=== PATIENT | male | born 1995 | race African-American/Black ===

== ENCOUNTER 2021-05-31 19:26 | Inpatient (IN) | payer OTHER ==
[2021-05-31 19:59] VITALS: BMI 23.8
[2021-05-31] MEDS ORDERED: ACETAMINOPHEN 325 MG TABLET (FP) PO PRN (21:27)
[2021-05-31] MEDS ORDERED: MAGNESIUM CITRATE 300 ML BOTTLE PO PRN (21:27)
[2021-05-31] MEDS ORDERED: NICOTINE POLACRILEX 2 MG GUM BUC PRN (21:27)
[2021-05-31] MEDS ORDERED: MAG HYDROX/AL HYDROX/SIMETH 30 ML UNIT-DOSE CUP PO PRN (21:27)
[2021-05-31] MEDS ORDERED: BISMUTH SUBSALICYLATE 524 MG/30 ML PO PRN (21:27)
[2021-05-31] MEDS ORDERED: MAGNESIUM HYDROX 2400MG/30ML ORAL SUSPENSION 30 ML CUP PO PRN (21:27)
[2021-05-31] MEDS ORDERED: ONDANSETRON *ODT* 4 MG TABLET SL PRN (21:27)
[2021-05-31] MEDS ORDERED: MENTHOL/PHENOL 1 EACH UD MM PRN (21:27)
[2021-05-31] MEDS ORDERED: methaDONE HCL 10 MG TABLET (FOR DETOX USE ONLY) PO ONE (21:27)
[2021-05-31] MEDS ORDERED: cloNIDine HCL 0.1 MG TABLET PO PRN (21:27)
[2021-05-31] MEDS ORDERED: ALBUTEROL SO4 HFA INHALER IH SCH (22:00)
[2021-05-31] MEDS: diazePAM 5 MG TABLET PO SCH (23:56)
[2021-05-31] MEDS: hydrOXYzine PAMOATE 25 MG CAPSULE (FP) PO SCH (23:56)
[2021-05-31] MEDS: THIAMINE HCL 100 MG TABLET (FP) PO SCH (23:57)
[2021-05-31] MEDS: MELATONIN 5 MG TABLETS PO SCH (23:57)
[2021-06-01] MEDS: ALBUTEROL SO4 HFA INHALER IH PRN (00:04)
[2021-06-01] MEDS: diazePAM 5 MG TABLET PO SCH ×4 (05:51→22:33)
[2021-06-01] MEDS: hydrOXYzine PAMOATE 25 MG CAPSULE (FP) PO SCH (05:51)
[2021-06-01] MEDS ORDERED: methaDONE HCL 10 MG TABLET (FOR DETOX USE ONLY) ONE (09:54)
[2021-06-01] MEDS: PRENATAL VITAMINS W/ FOLIC ACID TABLET (FP) PO SCH (10:48)
[2021-06-01] MEDS: NICOTINE 7 MG/24 HOURS TOPICAL PATCH TD SCH (10:48)
[2021-06-01 10:56] LABS: HEMATOCRIT 39.6 % (35.4-49); HEMOGLOBIN 13.3 GM/dL (11.7-16.9); MCH 28.5 pg (25.7-33.7); MCHC 33.6 g/dl (32.0-35.9); MEAN CELL VOLUME 84.8 fl (80-96); MEAN PLT VOLUME 7.9 fl (7.5-11.1); PLATELET COUNT 222 10^3/uL (134-434); RBC 4.67 M/mm3 (4.00-5.60); RDW 14.3 % (11.9-15.9); WHITE BLOOD COUNT 3.7 K/mm3 (4.0-10.0)
[2021-06-01 10:58] LABS: ALBUMIN 3.4 g/dl (3.4-5.0); BLOOD UREA NITROGEN 9.1 mg/dL (7-18); CALCIUM 8.4 mg/dL (8.5-10.1)
[2021-06-01 11:01] LABS: CREATININE 0.9 mg/dL (0.55-1.3)
[2021-06-01 11:03] LABS: BILIRUBIN,TOTAL 0.7 mg/dL (0.2-1)
[2021-06-01] MEDS: IBUPROFEN 400 MG TABLET (FP) PO PRN (17:19)
[2021-06-01] MEDS: METHOCARBAMOL 500 MG TABLET PO PRN (17:20)
[2021-06-01] MEDS: MELATONIN 5 MG TABLETS PO SCH (22:34)
[2021-06-01] MEDS: THIAMINE HCL 100 MG TABLET (FP) PO SCH (22:34)
[2021-06-01] MEDS: hydrOXYzine PAMOATE 25 MG CAPSULE (FP) PO PRN (22:36)
[2021-06-02] MEDS: diazePAM 5 MG TABLET PO SCH ×3 (06:37→22:34)
[2021-06-02] MEDS: hydrOXYzine PAMOATE 25 MG CAPSULE (FP) PO PRN (06:38)
[2021-06-02] MEDS ORDERED: methaDONE HCL 10 MG TABLET (FOR DETOX USE ONLY) PO ONE (10:00)
[2021-06-02] MEDS: PRENATAL VITAMINS W/ FOLIC ACID TABLET (FP) PO SCH (10:31)
[2021-06-02] MEDS: NICOTINE 7 MG/24 HOURS TOPICAL PATCH TD SCH (10:32)
[2021-06-02] MEDS: diazePAM 5 MG TABLET PO PRN ×2 (10:34→17:47)
[2021-06-02] MEDS: METHOCARBAMOL 500 MG TABLET PO PRN ×2 (10:35→22:37)
[2021-06-02] MEDS: ACETAMINOPHEN 325 MG TABLET (FP) PO PRN (10:35)
[2021-06-02] MEDS: MELATONIN 5 MG TABLETS PO SCH (22:33)
[2021-06-02] MEDS: THIAMINE HCL 100 MG TABLET (FP) PO SCH (22:33)
[2021-06-02] MEDS: IBUPROFEN 400 MG TABLET (FP) PO PRN (22:37)
[2021-06-03] MEDS: diazePAM 5 MG TABLET PO PRN ×2 (03:57→14:27)
[2021-06-03] MEDS: diazePAM 5 MG TABLET PO SCH ×2 (06:06→17:22)
[2021-06-03] MEDS ORDERED: methaDONE HCL 10 MG TABLET (FOR DETOX USE ONLY) ONE (09:15)
[2021-06-03] MEDS: PRENATAL VITAMINS W/ FOLIC ACID TABLET (FP) PO SCH (10:48)
[2021-06-03] MEDS: METHOCARBAMOL 500 MG TABLET PO PRN ×2 (10:49→18:15)
[2021-06-03] MEDS: NICOTINE 7 MG/24 HOURS TOPICAL PATCH TD SCH (10:50)
[2021-06-03] MEDS: ALBUTEROL SO4 HFA INHALER IH PRN (17:23)
[2021-06-03] MEDS: MELATONIN 5 MG TABLETS PO SCH ×2 (22:47→22:49)
[2021-06-03] MEDS: THIAMINE HCL 100 MG TABLET (FP) PO SCH ×2 (22:47→22:49)
[2021-06-04] MEDS ORDERED: diazePAM 5 MG TABLET PO ONE ×2 (05:00→06:00)
[2021-06-04] MEDS ORDERED: methaDONE HCL 10 MG TABLET (FOR DETOX USE ONLY) PO ONE (10:00)
[2021-06-04] MEDS: hydrOXYzine PAMOATE 25 MG CAPSULE (FP) PO PRN ×3 (10:48→22:30)
[2021-06-04] MEDS: METHOCARBAMOL 500 MG TABLET PO PRN ×3 (10:48→22:30)
[2021-06-04] MEDS: PRENATAL VITAMINS W/ FOLIC ACID TABLET (FP) PO SCH (10:49)
[2021-06-04] MEDS: ACETAMINOPHEN 325 MG TABLET (FP) PO PRN (10:50)
[2021-06-04] MEDS: NICOTINE 7 MG/24 HOURS TOPICAL PATCH TD SCH (10:53)
[2021-06-04] MEDS: ALBUTEROL SO4 HFA INHALER IH PRN (11:16)
[2021-06-04] MEDS: THIAMINE HCL 100 MG TABLET (FP) PO SCH (22:29)
[2021-06-04] MEDS: MELATONIN 5 MG TABLETS PO SCH (22:29)
[2021-06-05] MEDS: hydrOXYzine PAMOATE 25 MG CAPSULE (FP) PO PRN (06:18)
[2021-06-05] MEDS: METHOCARBAMOL 500 MG TABLET PO PRN (06:18)
[2021-06-05] MEDS: NICOTINE 7 MG/24 HOURS TOPICAL PATCH TD SCH (10:25)
[2021-06-05] MEDS: PRENATAL VITAMINS W/ FOLIC ACID TABLET (FP) PO SCH (10:25)
[2021-06-05 13:28] VITALS: BP 134/74; PULSE 82; TEMP 96.8
== END 2021-06-05 15:23 | disposition other institution (70) | DRG 773 ==
LOC: YASAS 19:26 → Y3N 22:14
PROVIDERS: ADMIT Allergy & Immunology; ATTEND Allergy & Immunology
PROC: HZ2ZZZZ Detoxification Services for Substance Abuse Treatment (ICD-10-PCS; principal; 2021-05-31)
DX: F11.23 Opioid dependence with withdrawal (principal); F14.20 Cocaine dependence, uncomplicated; F13.20 Sedative, hypnotic or anxiolytic dependence, uncomplicated; F17.290 Nicotine dependence, other tobacco product, uncomplicated; I10 Essential (primary) hypertension; J45.909 Unspecified asthma, uncomplicated; M54.5 Low back pain; G89.29 Other chronic pain; Z86.69 Personal history of other diseases of the nervous system and sense organs
CPT/HCPCS: 36415; 80053; 85027; 86780; C9803; J0735; U0003; U0005

== ENCOUNTER 2021-06-05 15:40 | Inpatient (IN) | payer OTHER ==
[2021-06-05] MEDS ORDERED: MAGNESIUM HYDROX 2400MG/30ML ORAL SUSPENSION 30 ML CUP PO PRN (15:48)
[2021-06-05] MEDS ORDERED: MENTHOL/PHENOL 1 EACH UD MM PRN (15:48)
[2021-06-05] MEDS ORDERED: ACETAMINOPHEN 325 MG TABLET (FP) PO PRN (15:48)
[2021-06-05] MEDS ORDERED: NICOTINE POLACRILEX 2 MG GUM BUC PRN (15:48)
[2021-06-05] MEDS ORDERED: LOPERAMIDE HCL 2 MG CAPSULE PO PRN (15:48)
[2021-06-05] MEDS ORDERED: MAGNESIUM CITRATE 300 ML BOTTLE PO PRN (15:48)
[2021-06-05] MEDS ORDERED: P-EPHED 60MG/TRIPROLIDI 2.5MG TABLET PO PRN (15:48)
[2021-06-05] MEDS ORDERED: guaiFENesin 200 MG/10 ML 10 ML UNIT-DOSE CUPS PO PRN (15:48)
[2021-06-05] MEDS ORDERED: IBUPROFEN 400 MG TABLET (FP) PO PRN (15:48)
[2021-06-05] MEDS ORDERED: MAG HYDROX/AL HYDROX/SIMETH 30 ML UNIT-DOSE CUP PO PRN (15:48)
[2021-06-05] MEDS ORDERED: ALBUTEROL SO4 HFA INHALER IH PRN (15:50)
[2021-06-05] MEDS ORDERED: MELATONIN 5 MG TABLETS PO SCH (22:00)
[2021-06-05] MEDS ORDERED: THIAMINE HCL 100 MG TABLET (FP) PO SCH (22:00)
[2021-06-05] MEDS: hydrOXYzine PAMOATE 25 MG CAPSULE (FP) PO PRN (22:44)
[2021-06-05] MEDS ORDERED: METHOCARBAMOL 500 MG TABLET PO ONE (23:37)
[2021-06-06] MEDS: hydrOXYzine PAMOATE 25 MG CAPSULE (FP) PO PRN (06:27)
[2021-06-06 07:05] VITALS: BP 110/71; PULSE 72; TEMP 97.1
[2021-06-06] MEDS ORDERED: PT OWN MED DRAWER 7, Y5N ONE (09:15)
[2021-06-06] MEDS ORDERED: PRENATAL VITAMINS W/ FOLIC ACID TABLET (FP) PO SCH (10:00)
[2021-06-06] MEDS ORDERED: NICOTINE 21 MG/24 HOURS TOPICAL PATCH TD SCH (10:00)
== END 2021-06-06 10:03 | disposition left against medical advice (07) | DRG 770 ==
LOC: YASAS 15:40 → Y5N 15:42 → Y3E 22:14
PROVIDERS: ADMIT Allergy & Immunology; ATTEND Allergy & Immunology
PROC: HZ42ZZZ Group Counseling for Substance Abuse Treatment, Cognitive-Behavioral (ICD-10-PCS; principal; 2021-06-05)
DX: F11.20 Opioid dependence, uncomplicated (principal); F14.20 Cocaine dependence, uncomplicated; F13.20 Sedative, hypnotic or anxiolytic dependence, uncomplicated; F17.210 Nicotine dependence, cigarettes, uncomplicated; F31.9 Bipolar disorder, unspecified; F41.9 Anxiety disorder, unspecified; F43.10 Post-traumatic stress disorder, unspecified; I10 Essential (primary) hypertension; M54.5 Low back pain; G89.29 Other chronic pain; Z87.09 Personal history of other diseases of the respiratory system; Z91.5 Personal history of self-harm